=== PATIENT | male | born 1950 | race Caucasian/White ===

== ENCOUNTER 2018-08-15 22:38 | Emergency (ER) | payer OTHER ==
[~2018-08-15] VITALS: Ht 177.8 cm; Wt 64.4 kg
[~2018-08-15 22:38] MED LIST: AMOXICILLIN875 MG PO; ASPIRIN; DOXYCYCLINE 10100 M2 PO; LEVAQUIN 500 M500 M1 PO; LORTAB 5 MG/5001 TA1 PO; PHENERGAN 25 MG25 M1 PO; TENORMIN; ZOCOR
[2018-08-15] MEDS ORDERED: ALLERCLEAR10 MG PO (22:54)
[2018-08-15] MEDS ORDERED: KEFLEX500 M2 PO (23:31)
[2018-08-15 23:43] VITALS: BP 145/75
== END 2018-08-15 23:43 | disposition home or self-care (01) ==
LOC: M.ERS 22:38
DX: S61.210A Laceration without foreign body of right index finger without damage to nail, initial encounter (principal); E78.00 Pure hypercholesterolemia, unspecified; I10 Essential (primary) hypertension; Z95.1 Presence of aortocoronary bypass graft; Z90.49 Acquired absence of other specified parts of digestive tract; W26.8XXA Contact with other sharp object(s), not elsewhere classified, initial encounter; Y93.89 Activity, other specified; Y92.89 Other specified places as the place of occurrence of the external cause; Y99.8 Other external cause status

== ENCOUNTER → 2019-01-20 | Outpatient (CLI) | payer OTHER ==
[~2019-01-20] MED LIST changes: +ALLERCLEAR10 MG PO; +KEFLEX500 M2 PO
== END ==
LOC: M.RAD 14:23
DX: M16.0 Bilateral primary osteoarthritis of hip (principal)